=== PATIENT | female | born 1975 | race Caucasian/White ===

== ENCOUNTER 2017-04-04 18:30 | Emergency (ER) | payer OTHER ==
--- NOTE | 2017-04-04 19:56 | DIAGNOSTIC IMAGING REPORT ---
PROCEDURE: XR CHEST 2 VIEW INDICATION: CHEST PAIN TECHNIQUE: PA and lateral view. COMPARISON: None. FINDINGS: Lungs are clear. Cardiovascular structures are normal. Bony thorax is unremarkable. IMPRESSION: 1. Negative chest.
--- NOTE | 2017-04-04 20:50 | ED ORDER SUMMARY ---
..... Patient: JOAQUIN PATEL OrderSheet [facility] VisitID: [id number] [address] [place] [address] 41y, F Registration Date/Time: 04/04/2017 ORDER SHEET Weight: 63.5 kg (stated) Allergies: No Known Drug Allergy GENERAL ORDERS: EKG - ER Stat (18:54 04/04/2017 LNations ER Tech1 per protocol) (18:55 PWeiler ER Tech1) Chest 2V Urgent (19:04 04/04/2017 EKoroleva P.A.-C) (Ack 19:09 LMuller) (19:32 MCampbell) Cardiac Panel Stat (19:04 04/04/2017 EKoroleva P.A.-C) (Ack 19:09 LMuller) (20:51 DDean R.N.) Vitals (20:38 04/04/2017 EKoroleva P.A.-C) (20:51 DDean R.N.) MEDICATION ORDERS: IV FLUIDS: ORDER SHEET NOTES: [Electronically signed by Jennifer Jean Baptiste-Marissa (23:04/04/2017)] [Electronically signed by Van Sow R.N. (04/05/2017)] [Electronically locked/signed by Van Sow R.N. (:04/05/2017)]
--- NOTE | 2017-04-04 20:50 | ED NURSING NOTES ---
Clinical Report - Nurses [facility] [address] [place] [address] 04/04/2017 18:31 Patient: JOAQUIN PATEL TRIAGE Triage time 1837. Acuity: LEVEL 3. Chief Complaint: CHEST PAIN and (chest pain off and on x 1 month, worse since last night. was seen at [facility] and sent here for further work up). --18:48 Katey Knowles R.N. 18:37 04/04/17. BP: 128/83. HR: 54. RR: 18. O2 saturation: 98% on room air. Temp: 98.4 F. Pain level now: 01/17. --18:48 Katey Knowles R.N. Weight: 63.5 kg stated. Height/Length: 65 inches Per Patient. BMI: 23.3. --18:40 Katey Knowles R.N. Medications Synthroid Oral 135mcg/daily. --18:41 Katey Knowles R.N. Chantix Oral (Tablet 0.5 mg) 1 tablet, TID. --18:42 Katey Knowles R.N. Naproxen Oral 500 mg, 2x a day. --18:43 Katey Knowles R.N. The following entry was struck and corrected by Katey Knowles R.N., 18:43 (04/04/17) Reason for correction - other(correction). <<STRICKEN ENTRY-- Chantix Oral (Tablet 0.5 mg) 1 tablet, TID. --18:42 Katey Knowles R.N. --END STRIKE>>. Allergies No Known Drug Allergy. --18:41 Katey Knowles R.N. History Arrived by private vehicle. Historian: patient. Accompanied by family. Primary physician (Cole). No difficulty breathing, sweating episodes, nausea or vomiting. PAST MEDICAL HX: ( graves disease,pt states she had an irreg heart beat in her 20's and had a holter monitor- nothing dx). SURGERY HX: Left knee surgery. Thyroid surgery. Tonsillectomy. SOCIAL HX: Former smoker (quit 07/25, was a 1ppd smoker 25+). History of drug use: marijuana. No alcohol use. --18:48 Katey Knowles R.N. Interventions ID band on patient. To treatment room. --18:48 Katey Knowles R.N. PHYSICAL ASSESSMENT 18:37. Ambulatory to room. Patient gowned. GENERAL / NEURO / PSYCH: Alert. Appears anxious. RESPIRATORY: Respirations not labored. Chest wall tenderness. CVS: Pulses within normal limits. Capillary refill less than 2 seconds. GI / : Abdomen soft. EXTREMITIES: No lower extremity edema. SKIN: Skin is warm and dry. --18:45 Katey Knowles R.N. NURSING PROGRESS NOTES 18:37. Oxygen administered. monitoring analyst placed on patient; (NSR). Patient gowned. Head of bed elevated. Reassurance given. Patient identifiers checked. Call light placed in reach. Side rails up. Bed placed in lowest position. Patient ready for evaluation- chart flagged. --18:44 Katey Knowles R.N. 18:44. EKG time: (1843). EKG was performed by alvarez stapleton and shown to the ED physician. done by miguel stapleton. --18:44 Katey Knowles R.N. 19:18 04/04/17. Patient transported to radiology by wheelchair with tech. --19:18 Katey Knowles R.N. 19:30. Patient returned from radiology by wheelchair with tech. --20:01 Katey Knowles R.N. 19:50 04/04/17. BP: 120/78. HR: 70. RR: 18. O2 saturation: 96% on room air. Temp: deferred. Pain level now: 01/17. --20:04 Katey Knowles R.N. 20:50 04/04/17. BP: 114/72. HR: 67. RR: 18. O2 saturation: 99%. Temp: deferred. Pain level now: 02/16. Additional comments: pt resting quietly, asking about eye drops . --20:51 Katey Knowles R.N. late entry -20:30 pt ambulated to bathroom, UA sent to lab. --20:51 Katey Knowles R.N. 21:02. The patient is calm and resting quietly. RESPIRATORY: No respiratory distress. SKIN: Skin is warm and dry. Skin color within normal limits. --21:13 Van Sow R.N. Patient ID band checked for patient name and birthdate: patient confirmed. Blood samples drawn from the left antecubital space with 23g butterfly by [employer] per protocol ; labeled in presence of the patient and sent to lab: rainbow set. ( Late entry:). --22:03 Kierra Fall. DISPOSITION / DISCHARGE Departure time: 2103. Condition at departure: stable. No learning barriers present. Discharge instructions provided and reviewed with the patient. Patient verbalized understanding. Written instructions provided in Montenegrin. The patient was discharged home and accompanied by family. She left the Emergency Department ambulatory and via private vehicle. Family member driving. FALL RISK ASSESSMENT: Fall risk assessment completed. No fall risk identified. --21:12 Van Sow R.N. 20:58 04/04/17. BP: 114/77. HR: 75. RR: 16. O2 saturation: 100% on room air. Pain level now: 10/19. --21:12 Van Sow R.N. Locked/Released at 04/05/2017 1:23 by Van Sow R.N.
--- NOTE | 2017-04-04 20:50 | ED CLINICAL REPORT ---
Clinical Report - Physicians/Mid Levels [facility] [address] [place] [address] 04/04/2017 18:31 Patient: JOAQUIN PATEL Time Seen: 19:08 Apr 04 2017. Arrived- By private vehicle. Historian- patient. HISTORY OF PRESENT ILLNESS Chief Complaint: CHEST PAIN. This started 1 months [employer] and is still present. It is described as located in the central chest area. No nausea, vomiting or difficulty breathing. (patient presents to the ER with chest pain mmost days over the last 4-5 weeks, with severe pain. Patient reports no shortness of breath. Recent increased stressor, with a significant other passing. enies history of DVT or PE. Distantly patient had previous chest pain, had workup for such, with no conclusions. She has not seen a bit over the last 1 month.). REVIEW OF SYSTEMS No fever, chills, pedal edema, calf pain or headache. No sore throat, abdominal pain, black stools or skin rash. All systems otherwise negative, except as recorded above. PAST HISTORY Has not had pulmonary embolism once. Denies the following risk factors for heart disease - diabetes, elevated cholesterol, hypertension, family history of heart disease and smoking. Denies the following risk factors for thoracic aortic dissection - prior history of thoracic aortic dissection. Denies the following risk factors for abdominal aortic aneurysm - family history of abdominal aortic aneurysm. Additional Surgeries: Knee Surgery. Thyroid Surgery. Tonsillectomy. Medications: Naproxen Oral 500 mg, 2x a day. Chantix Oral (Tablet 0.5 mg) 1 tablet, TID. Synthroid Oral 135mcg/daily. Allergies: No Known Drug Allergy. SOCIAL HISTORY Former smoker. History of drug use: marijuana. ADDITIONAL NOTES The nursing notes have been reviewed. PHYSICAL EXAM Vital Signs: 04/04/2017 18:37 BP: 128/83. HR: 54. RR: 18. O2 saturation: 98%. Temp: 98.4 F. Pain level now: 4/10. Appearance: Alert. Eyes: Eyes normal inspection. ENT: Ears normal. Nose normal. Neck: Normal inspection. No meningeal signs or lymphadenopathy. CVS: Normal heart rate and rhythm. Heart sounds normal. Respiratory: No respiratory distress. Breath sounds normal. No retractions or accessory muscle use. Abdomen: Soft and nontender. Bowel sounds normal. Neuro: Oriented X 3. No motor deficit. LABS, X-RAYS, AND EKG EKG: EKG time: (1843). No acute process. No acute ischemia. Rate: 70. Normal P waves. Normal GORAN. Normal QRS complex. Normal axis. Normal ST and T waves and QT. The study has been interpreted contemporaneously. The study has been independently viewed by me. The EKG appears to be a good tracing. Chest X-ray: (IMPRESSION: 1. Negative chest. Electronically Final signed by:Ruben Dill MD 04/04/2017 7:56:27 PM). Laboratory Tests: CBC w Diff: (DEBBI: 04/04/2017 19:20) ( [facility] 04/04/2017 19:31) Final results Test Result Flag Units (Reference) WHITE BLOOD COUNT 6.7 K/uL (4.5-11.5) RED BLOOD COUNT 4.13 M/uL (4.00-5.20) HEMOGLOBIN 12.7 gm/dL (12.0-16.0) HEMATOCRIT 38.0 % (36.0-46.0) MEAN CELL VOLUME 92 fL (80-100) MEAN CORPUSCULAR HGB 31 pg (26-34) MEAN CORPUSCULAR HGB CONC 33 g/dL (31-37) RED CELL DISTRIBUTION WIDTH 13.5 % (11.6-14.8) PLATELET COUNT 212 K/uL (150-400) NEUTROPHIL % 60.1 % (50-75) LYMPH % 27.4 % (25-40) MONO % 10.2 % (3-14) EOSINOPHIL % 1.7 % (0-4) BASOPHIL % 0.6 % (0-2) CHEM 13 PANEL: (DEBBI: 04/04/2017 19:20) ( [facility] 04/04/2017 19:44) Final results Test Result Flag Units (Reference) GLUCOSE 94 mg/dL (70-110) BUN 25 H mg/dL (7-18) CREATININE 0.6 mg/dL (0.6-1.3) Estimated GFR >60 mL/min Estimated GFR- >60 mL/min Note: Persistent reduction over 3 months in eGFR<60 mL/min/1.73 m2 defines CKD. Patients with eGFR values>=60 mL/min/1.73 m2 may also have CKD if evidence ofpersistent proteinuria. Additional information may be foundat www.kidney.org. SODIUM 143 mmol/L (136-145) POTASSIUM 3.8 mmol/L (3.5-5.1) CHLORIDE 108 H mmol/L (98-107) CARBON DIOXIDE 27 mmol/L (21-32) CALCIUM 8.3 L mg/dL (8.5-10.1) TOTAL PROTEIN 6.5 g/dL (6.4-8.2) ALBUMIN 3.7 g/dL (3.3-5.0) BILIRUBIN, TOTAL 0.4 mg/dL (0.0-1.0) ALKALINE PHOSPHATASE 66 U/L (46-116) AST (SGOT) 15 U/L (15-37) ALT (SGPT) 15 U/L (12-78) CPK 65 U/L (24-260) MAGNESIUM 1.9 mg/dL (1.8-2.4) TROPONIN I <0.05 ng/mL (0.00-1.5) TROPONIN REFERENCE RANGE:<0.1 NEGATIVE0.1-1.5 INDETERMINANT>1.5 POSITIVE . PROGRESS AND PROCEDURES Course of Care: patient with chest pain ongoing for the last 4-6 weeks, and later recent stressors. Patient with negative workup in the emergency department, she is peripheral negative, I do not suspect PE. History of similar pains previously and history of chest pain, I urge her to f/u w/ her primary care provider, and likely cardiology in the future. 04/04/2017 19:50 BP: 120/78. HR: 70. RR: 18. O2 saturation: 96%. Pain level now: 4/10. Patient is stable. Symptoms better. Patient/family counseled. Differential Diagnosis: I considered muscle strain, pleurisy, epidemic pleurodynia, intercostal neuritis, myocardial infarction, intermediate coronary syndrome, aortic dissection, pulmonary embolism, pneumonia and gastroesophageal reflux disease as a possible cause of chest pain in this patient. This is a partial list of diagnoses considered. Wells clinical prediction rule (PE): No clinical symptoms of DVT, other diagnosis less likely than PE, immobilization or surgery within 4wks, previous DVT or PE or hemoptysis. No malignancy. Heart rate less than 100 per minute. Disposition: Discharged. Condition: good. CLINICAL IMPRESSION Atypical chest pain INSTRUCTIONS Avoid stimulants (such as cigarettes, coffee, cold medicines, sinus medicines, street drugs). Do not smoke. No alcohol. (Medical ). Follow-up: Follow up with your doctor in three days as needed. (Electronically signed by Jennifer Jean Baptiste P.A.-C 04/04/2017 23:26)
--- NOTE | 2017-04-04 20:50 | ED NURSING NOTES ---
Clinical Report - Nurses [facility] [address] [place] [address] 04/04/2017 18:31 Patient: JOAQUIN PATEL TRIAGE Triage time 1837. Acuity: LEVEL 3. Chief Complaint: CHEST PAIN and (chest pain off and on x 1 month, worse since last night. was seen at [facility] and sent here for further work up). --18:48 Katey Knowles R.N. 18:37 04/04/17. BP: 128/83. HR: 54. RR: 18. O2 saturation: 98% on room air. Temp: 98.4 F. Pain level now: 01/17. --18:48 Katey Knowles R.N. Weight: 63.5 kg stated. Height/Length: 65 inches Per Patient. BMI: 23.3. --18:40 Katey Knowles R.N. Medications Synthroid Oral 135mcg/daily. --18:41 Katey Knowles R.N. Chantix Oral (Tablet 0.5 mg) 1 tablet, TID. --18:42 Katey Knowles R.N. Naproxen Oral 500 mg, 2x a day. --18:43 Katey Knowles R.N. The following entry was struck and corrected by Katey Knowles R.N., 18:43 (04/04/17) Reason for correction - other(correction). <<STRICKEN ENTRY-- Chantix Oral (Tablet 0.5 mg) 1 tablet, TID. --18:42 Katey Knowles R.N. --END STRIKE>>. Allergies No Known Drug Allergy. --18:41 Katey Knowles R.N. History Arrived by private vehicle. Historian: patient. Accompanied by family. Primary physician (Cole). No difficulty breathing, sweating episodes, nausea or vomiting. PAST MEDICAL HX: ( graves disease,pt states she had an irreg heart beat in her 20's and had a holter monitor- nothing dx). SURGERY HX: Left knee surgery. Thyroid surgery. Tonsillectomy. SOCIAL HX: Former smoker (quit 07/25, was a 1ppd smoker 25+). History of drug use: marijuana. No alcohol use. --18:48 Katey Knowles R.N. Interventions ID band on patient. To treatment room. --18:48 Katey Knowles R.N. PHYSICAL ASSESSMENT 18:37. Ambulatory to room. Patient gowned. GENERAL / NEURO / PSYCH: Alert. Appears anxious. RESPIRATORY: Respirations not labored. Chest wall tenderness. CVS: Pulses within normal limits. Capillary refill less than 2 seconds. GI / : Abdomen soft. EXTREMITIES: No lower extremity edema. SKIN: Skin is warm and dry. --18:45 Katey Knowles R.N. NURSING PROGRESS NOTES 18:37. Oxygen administered. parent educator placed on patient; (NSR). Patient gowned. Head of bed elevated. Reassurance given. Patient identifiers checked. Call light placed in reach. Side rails up. Bed placed in lowest position. Patient ready for evaluation- chart flagged. --18:44 Katey Knowles R.N. 18:44. EKG time: (1843). EKG was performed by alvarez stapleton and shown to the ED physician. done by miguel stapleton. --18:44 Katey Knowles R.N. 19:18 04/04/17. Patient transported to radiology by wheelchair with tech. --19:18 Katey Knowles R.N. 19:30. Patient returned from radiology by wheelchair with tech. --20:01 Katey Knowles R.N. 19:50 04/04/17. BP: 120/78. HR: 70. RR: 18. O2 saturation: 96% on room air. Temp: deferred. Pain level now: 01/17. --20:04 Katey Knowles R.N. 20:50 04/04/17. BP: 114/72. HR: 67. RR: 18. O2 saturation: 99%. Temp: deferred. Pain level now: 02/16. Additional comments: pt resting quietly, asking about eye drops . --20:51 Katey Knowles R.N. late entry -20:30 pt ambulated to bathroom, UA sent to lab. --20:51 Katey Knowles R.N. 21:02. The patient is calm and resting quietly. RESPIRATORY: No respiratory distress. SKIN: Skin is warm and dry. Skin color within normal limits. --21:13 Van Sow R.N. Patient ID band checked for patient name and birthdate: patient confirmed. Blood samples drawn from the left antecubital space with 23g butterfly by [employer] per protocol ; labeled in presence of the patient and sent to lab: rainbow set. ( Late entry:). --22:03 Kierra Fall. DISPOSITION / DISCHARGE Departure time: 2103. Condition at departure: stable. No learning barriers present. Discharge instructions provided and reviewed with the patient. Patient verbalized understanding. Written instructions provided in Greenlandic. The patient was discharged home and accompanied by family. She left the Emergency Department ambulatory and via private vehicle. Family member driving. FALL RISK ASSESSMENT: Fall risk assessment completed. No fall risk identified. --21:12 Van Sow R.N. 20:58 04/04/17. BP: 114/77. HR: 75. RR: 16. O2 saturation: 100% on room air. Pain level now: 10/19. --21:12 Van Sow R.N. Locked/Released at 04/05/2017 1:23 by Van Sow R.N.
--- NOTE | 2017-04-04 20:50 | ED CLINICAL REPORT ---
Clinical Report - Physicians/Mid Levels [facility] [address] [place] [address] 04/04/2017 18:31 Patient: JOAQUIN PATEL Time Seen: 19:08 Apr 04 2017. Arrived- By private vehicle. Historian- patient. HISTORY OF PRESENT ILLNESS Chief Complaint: CHEST PAIN. This started 1 months CHECK EMB[employer] and is still present. It is described as located in the central chest area. No nausea, vomiting or difficulty breathing. (patient presents to the ER with chest pain mmost days over the last 4-5 weeks, with severe pain. Patient reports no shortness of breath. Recent increased stressor, with a significant other passing. enies history of DVT or PE. Distantly patient had previous chest pain, had workup for such, with no conclusions. She has not seen a bit over the last 1 month.). REVIEW OF SYSTEMS No fever, chills, pedal edema, calf pain or headache. No sore throat, abdominal pain, black stools or skin rash. All systems otherwise negative, except as recorded above. PAST HISTORY Has not had pulmonary embolism once. Denies the following risk factors for heart disease - diabetes, elevated cholesterol, hypertension, family history of heart disease and smoking. Denies the following risk factors for thoracic aortic dissection - prior history of thoracic aortic dissection. Denies the following risk factors for abdominal aortic aneurysm - family history of abdominal aortic aneurysm. Additional Surgeries: Knee Surgery. Thyroid Surgery. Tonsillectomy. Medications: Naproxen Oral 500 mg, 2x a day. Chantix Oral (Tablet 0.5 mg) 1 tablet, TID. Synthroid Oral 135mcg/daily. Allergies: No Known Drug Allergy. SOCIAL HISTORY Former smoker. History of drug use: marijuana. ADDITIONAL NOTES The nursing notes have been reviewed. PHYSICAL EXAM Vital Signs: 04/04/2017 18:37 BP: 128/83. HR: 54. RR: 18. O2 saturation: 98%. Temp: 98.4 F. Pain level now: 4/10. Appearance: Alert. Eyes: Eyes normal inspection. ENT: Ears normal. Nose normal. Neck: Normal inspection. No meningeal signs or lymphadenopathy. CVS: Normal heart rate and rhythm. Heart sounds normal. Respiratory: No respiratory distress. Breath sounds normal. No retractions or accessory muscle use. Abdomen: Soft and nontender. Bowel sounds normal. Neuro: Oriented X 3. No motor deficit. LABS, X-RAYS, AND EKG EKG: EKG time: (1843). No acute process. No acute ischemia. Rate: 70. Normal P waves. Normal GORAN. Normal QRS complex. Normal axis. Normal ST and T waves and QT. The study has been interpreted contemporaneously. The study has been independently viewed by me. The EKG appears to be a good tracing. Chest X-ray: (IMPRESSION: 1. Negative chest. Electronically Final signed by:Ruben Dill MD 04/04/2017 7:56:27 PM). Laboratory Tests: CBC w Diff: (DEBBI: 04/04/2017 19:20) ( [facility] 04/04/2017 19:31) Final results Test Result Flag Units (Reference) WHITE BLOOD COUNT 6.7 K/uL (4.5-11.5) RED BLOOD COUNT 4.13 M/uL (4.00-5.20) HEMOGLOBIN 12.7 gm/dL (12.0-16.0) HEMATOCRIT 38.0 % (36.0-46.0) MEAN CELL VOLUME 92 fL (80-100) MEAN CORPUSCULAR HGB 31 pg (26-34) MEAN CORPUSCULAR HGB CONC 33 g/dL (31-37) RED CELL DISTRIBUTION WIDTH 13.5 % (11.6-14.8) PLATELET COUNT 212 K/uL (150-400) NEUTROPHIL % 60.1 % (50-75) LYMPH % 27.4 % (25-40) MONO % 10.2 % (3-14) EOSINOPHIL % 1.7 % (0-4) BASOPHIL % 0.6 % (0-2) CHEM 13 PANEL: (DEBBI: 04/04/2017 19:20) ( [facility] 04/04/2017 19:44) Final results Test Result Flag Units (Reference) GLUCOSE 94 mg/dL (70-110) BUN 25 H mg/dL (7-18) CREATININE 0.6 mg/dL (0.6-1.3) Estimated GFR >60 mL/min Estimated GFR- >60 mL/min Note: Persistent reduction over 3 months in eGFR<60 mL/min/1.73 m2 defines CKD. Patients with eGFR values>=60 mL/min/1.73 m2 may also have CKD if evidence ofpersistent proteinuria. Additional information may be foundat www.kidney.org. SODIUM 143 mmol/L (136-145) POTASSIUM 3.8 mmol/L (3.5-5.1) CHLORIDE 108 H mmol/L (98-107) CARBON DIOXIDE 27 mmol/L (21-32) CALCIUM 8.3 L mg/dL (8.5-10.1) TOTAL PROTEIN 6.5 g/dL (6.4-8.2) ALBUMIN 3.7 g/dL (3.3-5.0) BILIRUBIN, TOTAL 0.4 mg/dL (0.0-1.0) ALKALINE PHOSPHATASE 66 U/L (46-116) AST (SGOT) 15 U/L (15-37) ALT (SGPT) 15 U/L (12-78) CPK 65 U/L (24-260) MAGNESIUM 1.9 mg/dL (1.8-2.4) TROPONIN I <0.05 ng/mL (0.00-1.5) TROPONIN REFERENCE RANGE:<0.1 NEGATIVE0.1-1.5 INDETERMINANT>1.5 POSITIVE . PROGRESS AND PROCEDURES Course of Care: patient with chest pain ongoing for the last 4-6 weeks, and later recent stressors. Patient with negative workup in the emergency department, she is peripheral negative, I do not suspect PE. History of similar pains previously and history of chest pain, I urge her to f/u w/ her primary care provider, and likely cardiology in the future. 04/04/2017 19:50 BP: 120/78. HR: 70. RR: 18. O2 saturation: 96%. Pain level now: 4/10. Patient is stable. Symptoms better. Patient/family counseled. Differential Diagnosis: I considered muscle strain, pleurisy, epidemic pleurodynia, intercostal neuritis, myocardial infarction, intermediate coronary syndrome, aortic dissection, pulmonary embolism, pneumonia and gastroesophageal reflux disease as a possible cause of chest pain in this patient. This is a partial list of diagnoses considered. Wells clinical prediction rule (PE): No clinical symptoms of DVT, other diagnosis less likely than PE, immobilization or surgery within 4wks, previous DVT or PE or hemoptysis. No malignancy. Heart rate less than 100 per minute. Disposition: Discharged. Condition: good. CLINICAL IMPRESSION Atypical chest pain INSTRUCTIONS Avoid stimulants (such as cigarettes, coffee, cold medicines, sinus medicines, street drugs). Do not smoke. No alcohol. (Medical ). Follow-up: Follow up with your doctor in three days as needed. (Electronically signed by Jennifer Jean Baptiste P.A.-C 04/04/2017 23:26)
--- NOTE | 2017-04-04 20:50 | ED ORDER SUMMARY ---
..... Patient: JOAQUIN PATEL OrderSheet [facility] VisitID: [id number] [address] [place] [address] 41y, F Registration Date/Time: 04/04/2017 ORDER SHEET Weight: 63.5 kg (stated) Allergies: No Known Drug Allergy GENERAL ORDERS: EKG - ER Stat (18:54 04/04/2017 LNations ER Tech1 per protocol) (18:55 PWeiler ER Tech1) Chest 2V Urgent (19:04 04/04/2017 EKoroleva P.A.-C) (Ack 19:09 LMuller) (19:32 MCampbell) Cardiac Panel Stat (19:04 04/04/2017 EKoroleva P.A.-C) (Ack 19:09 LMuller) (20:51 DDean R.N.) Vitals (20:38 04/04/2017 EKoroleva P.A.-C) (20:51 DDean R.N.) MEDICATION ORDERS: IV FLUIDS: ORDER SHEET NOTES: [Electronically signed by Jennifer Jean Baptiste-Marissa (23:04/04/2017)] [Electronically signed by Van Sow R.N. (04/05/2017)] [Electronically locked/signed by Van Sow R.N. (:04/05/2017)]
--- NOTE | 2017-04-05 01:23 | ED MED RECONCILIATION SUMMARY ---
Patient: JOAQUIN PATEL Medication Reconciliation Report [facility] VisitID: [id number] [address] [place] [address] 41y, F Registration Date/Time: 04/04/2017 Weight: 63.5 kg Height/Length: 65 in. BMI: 23.3 ALLERGIES: No Known Drug Allergy The patient's Home Medications are listed below: THE FOLLOWING MEDICATIONS NEED TO BE RECONCILED: Chantix Oral (0.5 mg) 1 tablet, TID Naproxen Oral 500 mg, 2x a day Synthroid Oral 135mcg/daily The source(s) of the original Home Medication information: Not obtained. The following Medications were given to the patient in the Emergency Department: None. The following Medications were prescribed to the patient: None.
--- NOTE | 2017-04-05 01:23 | ED DISCHARGE INSTRUCTIONS ---
Patient: JOAQUIN PATEL General Instructions [facility] VisitID: [id number] [place] [address] 41y, F Registration Date/Time: 04/04/2017 Atypical chest pain INSTRUCTIONS Avoid stimulants (such as cigarettes, coffee, cold medicines, sinus medicines, street drugs). Do not smoke. No alcohol. (Medical ). Follow-up: Follow up with your doctor in three days as needed. ADDITIONAL INFORMATION Chest Pain, Noncardiac Based on your visit today, the exact cause of your chest pain is not certain. Your condition does not seem serious and your pain does not appear to be coming from your heart. However, sometimes the signs of a serious problem take more time to appear. Therefore, please watch for the warning signs listed below. Home Care: Rest today and avoid strenuous activity. Take any prescribed medicine as directed. Follow Up with your doctor or this facility as instructed or if you do not start to feel better within 24 hours. Get Prompt Medical Attention if any of the following occur: A change in the type of pain: if it feels different, becomes more severe, lasts longer, or begins to spread into your shoulder, arm, neck, jaw or back Shortness of breath or increased pain with breathing Cough with dark colored sputum (phlegm) or blood Weakness, dizziness, or fainting Fever of 100.4F (38C) or higher, or as directed by your healthcare provider Swelling, pain or redness in one leg Chest Pain, Uncertain Cause Chest pain can happen for a number of reasons. Sometimes the cause can not be determined. If yourcondition does not seem serious, and your pain does not appear to be coming from your heart, your doctor may recommend watching it closely. Sometimes the signs of a serious problem take more time to appear. Therefore, watch for the warning signs listed below. Home care After your visit, follow these recommendations: Rest today and avoid strenuous activity. Take any prescribed medicine as directed. Follow-up care Follow up with your doctor or this facility as instructed or if you do not start to feel better within 24 hours. Call 911 Get immediate medical attention if any of the following occur: A change in the type of pain: if it feels different, becomes more severe, lasts longer, or begins to spread into your shoulder, arm, neck, jaw or back Shortness of breath or increased pain with breathing Weakness, dizziness, or fainting Rapid heart beat Get prompt medical attention Call your doctor right away if any of the following occur: Cough with dark colored sputum (phlegm) or blood Fever of 100.4F(38C) or higher, or as directed by your health care provider Swelling, pain or redness in one leg You have been given the following additional information: Chest Pain, Noncardiac Chest Pain, Uncertain Cause (Electronically signed by Jennifer Jean Baptiste P.A.-C 04/04/2017 23:26)
--- NOTE | 2017-04-05 01:23 | ED MAR SUMMARY ---
..... Medication Administration Record [facility] [address] [place], [place] [id number] Patient: JOAQUIN PATEL Visit ID: [id number] 41y, F Weight: 63.5 kg Height/Length: 65 in BMI: 23.3 ALLERGIES: No Known Drug Allergy
--- NOTE | 2017-04-05 01:23 | ED MAR SUMMARY ---
..... Medication Administration Record [facility] [address] [place], [place] [id number] Patient: JOAQUIN PATEL Visit ID: [id number] 41y, F Weight: 63.5 kg Height/Length: 65 in BMI: 23.3 ALLERGIES: No Known Drug Allergy
--- NOTE | 2017-04-05 01:23 | ED DISCHARGE INSTRUCTIONS ---
Patient: JOAQUIN PATEL General Instructions [facility] VisitID: [id number] [place] [address] 41y, F Registration Date/Time: 04/04/2017 Atypical chest pain INSTRUCTIONS Avoid stimulants (such as cigarettes, coffee, cold medicines, sinus medicines, street drugs). Do not smoke. No alcohol. (Medical ). Follow-up: Follow up with your doctor in three days as needed. ADDITIONAL INFORMATION Chest Pain, Noncardiac Based on your visit today, the exact cause of your chest pain is not certain. Your condition does not seem serious and your pain does not appear to be coming from your heart. However, sometimes the signs of a serious problem take more time to appear. Therefore, please watch for the warning signs listed below. Home Care: Rest today and avoid strenuous activity. Take any prescribed medicine as directed. Follow Up with your doctor or this facility as instructed or if you do not start to feel better within 24 hours. Get Prompt Medical Attention if any of the following occur: A change in the type of pain: if it feels different, becomes more severe, lasts longer, or begins to spread into your shoulder, arm, neck, jaw or back Shortness of breath or increased pain with breathing Cough with dark colored sputum (phlegm) or blood Weakness, dizziness, or fainting Fever of 100.4F (38C) or higher, or as directed by your healthcare provider Swelling, pain or redness in one leg Chest Pain, Uncertain Cause Chest pain can happen for a number of reasons. Sometimes the cause can not be determined. If yourcondition does not seem serious, and your pain does not appear to be coming from your heart, your doctor may recommend watching it closely. Sometimes the signs of a serious problem take more time to appear. Therefore, watch for the warning signs listed below. Home care After your visit, follow these recommendations: Rest today and avoid strenuous activity. Take any prescribed medicine as directed. Follow-up care Follow up with your doctor or this facility as instructed or if you do not start to feel better within 24 hours. Call 911 Get immediate medical attention if any of the following occur: A change in the type of pain: if it feels different, becomes more severe, lasts longer, or begins to spread into your shoulder, arm, neck, jaw or back Shortness of breath or increased pain with breathing Weakness, dizziness, or fainting Rapid heart beat Get prompt medical attention Call your doctor right away if any of the following occur: Cough with dark colored sputum (phlegm) or blood Fever of 100.4F(38C) or higher, or as directed by your health care provider Swelling, pain or redness in one leg You have been given the following additional information: Chest Pain, Noncardiac Chest Pain, Uncertain Cause (Electronically signed by Jennifer Jean Baptiste P.A.-C 04/04/2017 23:26)
--- NOTE | 2017-04-05 01:23 | ED MED RECONCILIATION SUMMARY ---
Patient: JOAQUIN PATEL Medication Reconciliation Report [facility] VisitID: [id number] [address] [place] [address] 41y, F Registration Date/Time: 04/04/2017 Weight: 63.5 kg Height/Length: 65 in. BMI: 23.3 ALLERGIES: No Known Drug Allergy The patient's Home Medications are listed below: THE FOLLOWING MEDICATIONS NEED TO BE RECONCILED: Chantix Oral (0.5 mg) 1 tablet, TID Naproxen Oral 500 mg, 2x a day Synthroid Oral 135mcg/daily The source(s) of the original Home Medication information: Not obtained. The following Medications were given to the patient in the Emergency Department: None. The following Medications were prescribed to the patient: None.
== END 2017-04-04 21:04 | disposition home or self-care (01) ==
LOC: ED SRH 18:30
DX: R07.89 Other chest pain (principal); Z79.899 Other long term (current) drug therapy; Z87.891 Personal history of nicotine dependence
CPT/HCPCS: 90100; 90616; 92610; 92720; 95059

== ENCOUNTER 2017-04-07 15:14 | Outpatient (CLI) | payer OTHER ==
--- NOTE | 2017-04-07 16:27 | DIAGNOSTIC IMAGING REPORT ---
PROCEDURE: CT ABDOMEN/PELVIS W/O CONTRAST INDICATION: ACUTE ABDOMINAL PAIN TECHNIQUE: Noncontrast axial images were obtained of the entire abdomen and pelvis with sagittal and coronal reformations. COMPARISON: None. FINDINGS: ABDOMEN: Lung base are clear. Normal heart size. 1.7 cm cyst in the dome of the liver. 1.5 cm hypodense splenic lesion. The gallbladder, pancreas and adrenal glands are normal. Normal kidneys without calculi or hydronephrosis. Normal ureters. Mild atherosclerosis. Moderate stool. PELVIS: Normal appendix. Vaginal tampon in place. Uterus and adnexa are unremarkable. Diffuse thickening of the bladder which may be due to lack of distention versus cystitis. No inflammatory changes, free fluid or free air. No suspicious osseous lesions. IMPRESSION: 1. Hepatic cyst 2. 1.5 cm hypodense splenic lesion 3. Urinary bladder wall thickening which may be secondary to decompression versus cystitis. Correlate clinically and with urinalysis. 4. Results discussed with Tala Weathers. All CT scans at this facility use dose modulation, iterative reconstruction, and/or weight-based dosing when appropriate to reduce radiation dose to as low as reasonably achievable.
== END 2017-04-07 23:00 | disposition home or self-care (01) ==
LOC: CT SRH 15:14
DX: R10.9 Unspecified abdominal pain (principal); K76.89 Other specified diseases of liver; D73.89 Other diseases of spleen; N32.9 Bladder disorder, unspecified